=== PATIENT | male | born 1980 | race Caucasian/White ===

== ENCOUNTER 2018-12-26 17:10 | Inpatient (IN) | payer OTHER ==
[~2018-12-26] VITALS: Ht 152.4 cm; Wt 96.8 kg
[2018-12-26] VITALS (7 sets, daily range): BP systolic 109–161; BP diastolic 62–106
[2018-12-26] MEDS ORDERED: NOHOMEMEDICATIONS (17:27)
[2018-12-26 17:46] LABS: HEMATOCRIT 50.4 % (42.0-52.0); HEMOGLOBIN 16.7 gm/dL (14.0-18.0); MCH 33.1 pg (26.0-34.0); MCHC 33.2 g/dL (28.0-37.0); MCV 99.8 fL (80.0-100.0); MPV 9.1 fl. (7.2-11.1); NUCLEATED RBCS 0 /100WBC; PLATELET COUNT* 254 thou/uL (150-400); RBC 5.05 mil/uL (4.50-6.00); RDW-CV 14.4 % (10.5-14.5); WBC 18.2 thou/uL (4.0-11.0)
[2018-12-26 17:55] LABS: CALCIUM 9.9 mg/dL (8.5-10.1); CREATININE 1.5 mg/dL (0.6-1.3); POTASSIUM 3.8 mmol/L (3.5-5.1)
[2018-12-26 18:00] LABS: URINE BILIRUBIN NEGATIVE (Negative); URINE BLOOD 2+ (Negative); URINE CLARITY CLEAR; URINE COLOR YELLOW; URINE GLUCOSE-RANDOM NEGATIVE (Negative); URINE KETONES TRACE (Negative); URINE LEUKOCYTES-REFLEX NEGATIVE (Negative); URINE NITRITE-REFLEX NEGATIVE (Negative); URINE PROTEIN 2+ (Negative); URINE SPECIFIC GRAVITY >= 1.030 (1.005-1.030); URINE UROBILINOGEN 0.2 E.U./dl (0.2-1.0)
[2018-12-26 18:00] LABS: ALBUMIN 4.6 g/dL (3.4-5.0); MAGNESIUM 2.2 mg/dL (1.8-2.4); TOTAL BILIRUBIN 0.2 mg/dL (<0.1-1.0); TOTAL PROTEIN 8.4 g/dL (6.4-8.2)
[2018-12-26 18:10] LABS: AMORPHOUS URATES Few /LPF (None Seen); BACTERIA-REFLEX 1-9 Few /HPF (None Seen); CASTS None Seen /LPF (None Seen); CRYSTALS None Seen /LPF (None Seen); MUCUS 0-3 Light strn/LPF (None Seen); SQUAMOUS 0-3 Few /LPF (0-3); URINE RBC 0-2 Rare /HPF (0-2); URINE WBC-REFLEX 0-5 Rare /HPF (0-5)
[2018-12-26 18:12] LABS: INR 0.9; PROTIME 9.5 Seconds (9.20-11.50)
[2018-12-26 18:13] LABS: ABSOLUTE LYMPHOCYTES 12.6 thou/uL (0.8-5.3); ABSOLUTE MONOCYTES 0.9 thou/uL (0.0-1.2); ABSOLUTE NEUTROPHILS 4.7 thou/uL (1.6-8.1); PLATELET ESTIMATE ADEQUATE
[2018-12-26 18:26] LABS: AMP/METHAMP Negative (Negative); BARBITURATES Negative (Negative); BENZODIAZEPINES POSITIVE (Negative); COCAINE Negative (Negative); METHADONE Negative (Negative); OPIATES Negative (Negative); PCP Negative (Negative); THC Negative (Negative)
[2018-12-26 18:57] LABS: CK-MB MASS 1.5 ng/mL (<0.5-3.6); LIPASE 206 U/L (73-393); TROPONIN-I LEVEL <0.06 ng/mL (<0.06)
[2018-12-26 19:17] LABS: BE -5.7 mmol/L (-2 to +3); PCO2 40.7 mmHg (35.0-45.0); pH 7.313 (7.340-7.450)
[2018-12-26 19:19] LABS: PO2 307.1 mmHg (75.0-100.0)
[2018-12-26 19:57] LABS: CSF CLARITY CLEAR; CSF COLOR COLORLESS; CSF RBC 0 /mm3; CSF WBC 0 /mm3 (0-10); VOLUME 0.5 ml
[2018-12-27] VITALS (18 sets, daily range): BP systolic 106–139; BP diastolic 57–78
[2018-12-27 03:57] LABS: ABSOLUTE EOSINOPHILS 0.1 thou/uL (0.0-0.7); ABSOLUTE LYMPHOCYTES 3.4 thou/uL (0.8-5.3); ABSOLUTE NEUTROPHILS 9.8 thou/uL (1.6-8.1); BASOPHILS 0.3 %; EOSINOPHILS 0.8 %; HEMATOCRIT 41.4 % (42.0-52.0); LYMPHOCYTES 22.2 %; MCH 32.1 pg (26.0-34.0); MCHC 33.3 g/dL (28.0-37.0); MCV 96.4 fL (80.0-100.0); MONOCYTES 12.7 %; MPV 8.5 fl. (7.2-11.1); NUCLEATED RBCS 0 /100WBC; PLATELET COUNT* 202 thou/uL (150-400); RDW-CV 13.6 % (10.5-14.5); WBC 15.4 thou/uL (4.0-11.0)
[2018-12-27 04:01] LABS: HEMOGLOBIN 13.8 gm/dL (14.0-18.0)
[2018-12-27 06:21] LABS: BE -1.5 mmol/L (-2 to +3); PCO2 43.8 mmHg (35.0-45.0); pH 7.359 (7.340-7.450)
[2018-12-28] VITALS (24 sets, daily range): BP systolic 98–190; BP diastolic 53–116
[2018-12-28 04:58] LABS: ABSOLUTE LYMPHOCYTES 1.7 thou/uL (0.8-5.3); ABSOLUTE MONOCYTES 0.3 thou/uL (0.0-1.2); ABSOLUTE NEUTROPHILS 6.9 thou/uL (1.6-8.1); BASOPHILS 0.1 %; EOSINOPHILS 0.1 %; HEMATOCRIT 42.8 % (42.0-52.0); HEMOGLOBIN 14.2 gm/dL (14.0-18.0); LYMPHOCYTES 19.2 %; MCH 32.2 pg (26.0-34.0); MCHC 33.1 g/dL (28.0-37.0); MCV 97.4 fL (80.0-100.0); MONOCYTES 3.5 %; MPV 8.7 fl. (7.2-11.1); NUCLEATED RBCS 0 /100WBC; PLATELET COUNT* 222 thou/uL (150-400); POLYS 77.1 %; RBC 4.39 mil/uL (4.50-6.00); RDW-CV 14.1 % (10.5-14.5); WBC 8.9 thou/uL (4.0-11.0)
[2018-12-28 05:24] LABS: CALCIUM 8.8 mg/dL (8.5-10.1); CREATININE 0.7 mg/dL (0.6-1.3); POTASSIUM 4.6 mmol/L (3.5-5.1)
[2018-12-28 05:52] LABS: BE -0.5 mmol/L (-2 to +3); PCO2 40.4 mmHg (35.0-45.0); PO2 66.4 mmHg (75.0-100.0); pH 7.396 (7.340-7.450)
--- NOTE | 2018-12-28 08:38 | EKG ---
[place] [address] ELECTROCARDIOGRAM REPORT Name: DARREN BERNAL II Room: [address] ADM IN M.R.#: [id number] Admission: 12/26/18 Attend Phys: Asael Arias MD Discharge: Date of : 80 Report #: [id number] THIS REPORT FOR: //name// [facility] ED Test Date: 2018-12-26 Test Time: 18:30:35 Pat Name: DARREN BERNAL Department: Room: [address] Gender: M Maintenance Department Manager: [facility] : 1980 Requested By: Marie Brady Order Number: [id number] Raina MD: Lui Lane Measurements Intervals Doole Rate: 112 P: 67 MT: 173 QRS: 35 QRSD: 95 T: 24 QT: 336 QTc: 459 Interpretive Statements Sinus tachycardia Left atrial enlargement, possible No previous ECG available for comparison Electronically Signed On 12-28-2018 8:38:[address] [email or web address] <ELECTRONICALLY SIGNED> By: Lui Lane MD, [facility] 12/28/[address] MD, FACC /EPI
[2018-12-28 11:25] LABS: BE -2.1 mmol/L (-2 to +3); PCO2 41.1 mmHg (35.0-45.0); PO2 100.6 mmHg (75.0-100.0); pH 7.368 (7.340-7.450)
--- NOTE | 2018-12-28 15:00 | 2DMMODE ---
[place] [address] 2 D/M-MODE ECHOCARDIOGRAM Name: DARREN BERNAL II Room: [address] IN [facility]#: [id number] Admission: 12/26/18 Attend Phys: Asael Arias, Discharge: Date of : 80 Date of Service: 12/28/18 1459 Report #: [id number] THIS REPORT FOR: //name// APPROVED REPORT Study performed: 12/28/2018 10:19:58 EXAM: Comprehensive 2D, Doppler, and color-flow Echocardiogram Patient Location: In-Patient Room #: [facility][note 3] Status: routine BSA: 2.10 HR: 98 bpm BP: 124/77 mmHg Rhythm: NSR Other Information Study Quality: Good 2D Dimensions IVSd: 12.47 (7-11mm) LVOT Diam: 21.82 (18-24mm) LVDd: 43.05 mm PWd: 11.10 (7-11mm) LVDs: 33.27 (25-40mm) Aortic Root: 37.46 mm Volumes Left Atrial Volume (Systole) LA ESV Index: 32.70 mL/m2 Aortic Valve AoV Peak Hector.: 1.23 m/s AO Peak Gr.: 6.04 mmHg LVOT Max P.00 mmHg AO Mean Gr.: 3.40 mmHg LVOT Mean P.01 mmHg LVOT Max V: 1.00 m/s AO V2 VTI: 20.53 cm LVOT Mean V: 0.65 m/s JESSICA (VTI): 3.31 cm2 LVOT V1 VTI: 18.15 cm Mitral Valve E/A Ratio: 0.95 MV Decel. Time: 202.89 ms MV E Max Hector.: 0.90 m/s MV PHT: 58.84 ms MVA (PHT): 3.74 cm2 [place] [address] 2 D/M-MODE ECHOCARDIOGRAM Name: DARREN BERNAL II Room: [address] IN [facility]#: [id number] Admission: 12/26/18 Attend Phys: Asael Arias, Discharge: Date of : 80 Date of Service: 12/28/18 1459 Report #: [id number] TDI E/Lateral E': 5.29 E/Medial E': 6.43 Medial E' Hector.: 0.14 m/s Lateral E' Hector.: 0.17 m/s Pulmonary Valve PV Peak Hector.: 1.23 m/s PV Peak Gr.: 6.01 mmHg Left Ventricle The left ventricle is normal size. There is normal LV segmental wall motion. There is normal left ventricular wall thickness. Left ventricular systolic function is normal. LVEF is 65-70%. Grade I - abnormal relaxation pattern. Right Ventricle The right ventricle is normal size. The right ventricular systolic function is normal. Atria Left atrium is mildly dilated. The right atrium size is normal. Aortic Valve The aortic valve is normal in structure. No aortic regurgitation is present. There is no aortic valvular stenosis. Mitral Valve The mitral valve is normal in structure. There is no mitral valve regurgitation noted. No evidence of mitral valve stenosis. Tricuspid Valve The tricuspid valve is normal in structure. There is no tricuspid valve regurgitation noted. Pulmonic Valve The pulmonary valve is normal in structure. There is no pulmonic valvular regurgitation. Great Vessels The aortic root is normal in size. IVC is normal in size and collapses >50% with inspiration. Pericardium There is no pericardial effusion. <Conclusion> [place] [address] 2 D/M-MODE ECHOCARDIOGRAM Name: DARREN BERNAL II Room: [address]#: [id number] Admission: 12/26/18 Attend Phys: Asael Arias, Discharge: Date of : 80 Date of Service: 12/28/18 1459 Report #: [id number] The left ventricle is normal size. There is normal left ventricular wall thickness. Left ventricular systolic function is normal. LVEF is 65-70%. Grade I - abnormal relaxation pattern. Left atrium is mildly dilated. IVC is normal in size and collapses >50% with inspiration. <ELECTRONICALLY SIGNED> By: Lui Lane MD, FACC 12/28/181458 [address] MD, FACC /INF
[2018-12-28 16:08] LABS: HIV-1/HIV-2 ANTIBODY Non Reactive (Non Reactive)
[2018-12-29] VITALS (11 sets, daily range): BP systolic 95–139; BP diastolic 63–89
[2018-12-29 04:22] LABS: ABSOLUTE LYMPHOCYTES 1.5 thou/uL (0.8-5.3); ABSOLUTE MONOCYTES 0.9 thou/uL (0.0-1.2); ABSOLUTE NEUTROPHILS 8.9 thou/uL (1.6-8.1); BASOPHILS 0.4 %; HEMATOCRIT 37.6 % (42.0-52.0); HEMOGLOBIN 12.6 gm/dL (14.0-18.0); LYMPHOCYTES 13.4 %; MCH 32.2 pg (26.0-34.0); MCHC 33.5 g/dL (28.0-37.0); MONOCYTES 8.3 %; MPV 8.3 fl. (7.2-11.1); NUCLEATED RBCS 0 /100WBC; PLATELET COUNT* 222 thou/uL (150-400); POLYS 77.9 %; RBC 3.91 mil/uL (4.50-6.00); RDW-CV 13.8 % (10.5-14.5); WBC 11.4 thou/uL (4.0-11.0)
[2018-12-29 04:33] LABS: APTT 27.3 Seconds (25.0-31.3); PROTIME 10.4 Seconds (9.20-11.50)
[2018-12-29 11:11] LABS: CALCIUM 8.6 mg/dL (8.5-10.1); CREATININE 0.8 mg/dL (0.6-1.3); POTASSIUM 4.3 mmol/L (3.5-5.1)
--- NOTE | 2018-12-29 12:47 | CON ---
[address] [address] CONSULTATION Name: DARREN BERNAL II Room: [address] IN .R.#: [id number] Admission: 12/26/18 Attend Phys: Asael Arias MD Discharge: Date of : 80 Report #: [id number] THIS REPORT FOR: //name// CC: Asael Arias [facility] physician/PCP DATE OF SERVICE: 12/27/2018 PULMONARY CONSULTATION REASON FOR CONSULTATION: Acute hypoxic respiratory failure, status epilepticus. PHYSICIAN REQUESTING CONSULTATION: Dr. Asael Airas. HISTORY OF PRESENT ILLNESS: The patient is a 38-year-old gentleman with past medical history that is significant for tobacco dependence. The patient presented to the Emergency Department after he was found to have left-sided jerky movements over the last 3 days by his . The patient was subsequently noted to have generalized tonic-clonic convulsion while on the way to the hospital. He was taken from the car when he was seizing with loss of consciousness and was given multiple doses of Versed and Ativan. He was given a total of 7 doses of 7 mg of Versed and 4 mg of Ativan for recurrent seizures. The patient was intubated for airway protection. The patient has been afebrile. According to the , the patient has been drinking heavily over the last few days, but he is not a chronic alcohol dependent. Overnight, he has been sedated with propofol. No witnessed seizures since intubation. However, no sedation holiday was started. During his admission, the patient was found to have acute kidney injury with lactic acidosis and ____. PAST MEDICAL HISTORY: Positive for tobacco dependence. PAST SURGICAL HISTORY: [place] [address] CONSULTATION Name: DARREN BERNAL II Room: [address]#: [id number] Admission: 12/26/18 Attend Phys: Asael Arias MD Discharge: Date of : 80 Report #: [id number] SOCIAL HISTORY: The patient has a history of smoking 2-3 packs per day for the last 15 years. The denies. He is occasional alcohol user. However, he has been drinking heavily over the last few days. No illicit drug use. FAMILY HISTORY: Negative for lung, cardiac, or seizure disorder. REVIEW OF SYSTEMS: Unobtainable since the patient is intubated and sedated. PHYSICAL EXAMINATION: The patient had the following: VITAL SIGNS: Temperature 37.2, heart rate of 86, respiratory rate of 17, blood pressure 116/69, saturation 99% on ventilator. GENERAL: Showed a young gentleman, who is intubated and sedated. HEAD: Atraumatic. EYES: Pupils reactive bilaterally. NECK: Supple. No cervical lymphadenopathy. No carotid bruit. CARDIOVASCULAR: Regular rate and rhythm, normal S1, S2, no murmur. CHEST: Decreased air entry with prolonged expiratory phase and wheezing. ABDOMEN: Soft, lax, nontender. Normal bowel sounds. EXTREMITIES: Lower limb examination showed no clubbing, cyanosis, or edema. HEMATOLOGY SPECIALIST: Limited by the fact that the patient is sedated. Pupils are reactive. Further examination will be deferred until sedation is reduced. LABORATORY DATA: As follows: CBC showed a WBC count of 15.4, hemoglobin of 13.8 and platelets of 202. His blood gas was 7.359, pCO2 of 43, pO2 of 116 on 50% FiO2 with AC controlled ventilation. Toxicology screen is negative except benzodiazepine, which might have been given during the ER visit. Creatinine is 1, but on admission, it was 1.5. Lactic acid was 3.5 on admission, but it is currently 0.7. His CT scan of the head was unremarkable. His chest x-ray showed retrocardiac left basilar infiltrate/possible atelectasis. Endotracheal tube is in place. No clear consolidation otherwise. ASSESSMENT AND PLAN: 1. Acute hypoxic respiratory failure. 2. Status epilepticus. 3. Bronchospasm. 4. Acute kidney injury. 5. Metabolic acidosis. 6. Lactic acidosis. PLAN: The patient presented with recurrent seizures what appeared to [place] [address] CONSULTATION Name: DARREN BERNAL II Room: [address] IN [facility].#: [id number] Admission: 12/26/18 Attend Phys: Asael Arias MD Discharge: Date of : 80 Report #: [id number] He is currently sedated. No apparent seizures clinically. I discussed with the neurologist overnight, Dr. Malhotra and we decided to keep him lightly sedated on propofol. Lumbar puncture was attempted. He will likely go for an EEG evaluation and MRI. If no evidence of recurrent seizures, we will proceed with spontaneous breathing trial. He appears to have chronic history of heavy tobacco dependence. He is wheezy and has bronchospasm. I will start him on scheduled bronchodilators and IV Solu-Medrol. He is on empiric antibiotic coverage. Infectious Disease is following. Acute kidney injury, improved after hydration along with lactic acidosis. Prophylaxis: Lovenox and PPI. Thank you for giving us the opportunity to participate in the management of this patient. CRITICAL CARE TIME: 38 minutes. <ELECTRONICALLY SIGNED> By: Antonia Luna MD 12/29/18 1247 0946 1042Ammar Noelle Luna MD /nt
[2018-12-29 16:09] LABS: CSF GLUCOSE 72 mg/dl (40-70); CSF PROTEIN 52.2 mg/dl (15-45)
[2018-12-29 16:54] LABS: CSF CLARITY CLEAR; CSF COLOR COLORLESS; VOLUME 5 ml
[2018-12-29 16:55] LABS: CSF RBC 493 /mm3
[2018-12-29 16:56] LABS: CSF WBC 14 /mm3 (0-10)
[2018-12-29 17:23] LABS: CSF LYMPHOCYTES 21 % (40-80); CSF MONONUCLEARS 6 % (15-45); CSF POLYS 73 % (0-6)
[2018-12-29 19:10] LABS: IgA 136 mg/dL (90-386); IgG 594 mg/dL (700-1600); IgM 49 mg/dL (20-172)
[2018-12-30] VITALS: BP 113/70
[2018-12-30 08:00] VITALS: BP 118/77
[2018-12-30 12:01] VITALS: BP 152/86
[2018-12-30 16:37] VITALS: BP 122/74
[2018-12-30 20:15] VITALS: BP 122/72
[2018-12-31] VITALS: BP 126/77
[2018-12-31 04:00] VITALS: BP 118/74
[2018-12-31 09:45] LABS: ABSOLUTE LYMPHOCYTES 1.1 thou/uL (0.8-5.3); ABSOLUTE MONOCYTES 0.3 thou/uL (0.0-1.2); ABSOLUTE NEUTROPHILS 7.6 thou/uL (1.6-8.1); BASOPHILS 0.2 %; HEMATOCRIT 43.9 % (42.0-52.0); LYMPHOCYTES 12.4 %; MCH 32.2 pg (26.0-34.0); MCHC 33.7 g/dL (28.0-37.0); MCV 95.4 fL (80.0-100.0); MONOCYTES 3.4 %; MPV 8.1 fl. (7.2-11.1); NUCLEATED RBCS 0 /100WBC; PLATELET COUNT* 259 thou/uL (150-400); RDW-CV 13.3 % (10.5-14.5)
[2018-12-31 09:50] LABS: HEMOGLOBIN 14.8 gm/dL (14.0-18.0)
[2018-12-31 09:59] LABS: ALBUMIN 3.6 g/dL (3.4-5.0); CALCIUM 9.6 mg/dL (8.5-10.1); CREATININE 0.7 mg/dL (0.6-1.3); POTASSIUM 4.2 mmol/L (3.5-5.1); TOTAL BILIRUBIN 0.5 mg/dL (<0.1-1.0); TOTAL PROTEIN 7.1 g/dL (6.4-8.2)
[2018-12-31 13:11] LABS: CSF ALBUMIN 27 mg/dL (11-48); CSF IGG INDEX 0.7 (0.0-0.7); CSF IgG 3.2 mg/dL (0.0-8.6); CSF/SERUM ALBUMIN INDEX 7 (0-8)
--- NOTE | 2019-01-01 05:19 | CON ---
[address] [address] CONSULTATION Name: DARREN BERNAL II Room: [address] IN [facility]#: [id number] Admission: 12/26/18 Attend Phys: Asael Arias MD Discharge: 12/31/18 Date of : 80 Report #: [id number] THIS REPORT FOR: //name// CC: Asael Arias FAM physician/PCP DATE OF SERVICE: 12/27/2018 INFECTIOUS DISEASE CONSULTATION ATTENDING PHYSICIAN: Asael Arias M.D. REASON FOR CONSULTATION: Seizures, rule out infection. HISTORY OF PRESENT ILLNESS: A 38-year-old white man is driven today by his to the Emergency Room with history of tremors, shakiness of the left upper extremity, subsequently developing to full-blown seizure activity. The patient is admitted to the Intensive Care Unit. He is intubated through oral cavity. He is completely sedated and all information is gathered from review of records and conversation with the patient's and patient's mother. PAST MEDICAL HISTORY: Cigarette smoking 2-3 packets a day and occasional alcohol, under some stress of late. He had a left chest biopsy on account of mother having Hodgkin's. 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 SOCIAL HISTORY: . He has 2 children and no one having infection at home. REVIEW OF SYSTEMS: Essentially not contributory. PHYSICAL EXAMINATION: GENERAL: This is a well-developed, sedated white man in the Intensive Care Unit, intubated through oral cavity presenting with following vital signs. VITAL SIGNS: Temperature maximum is 37.7, pulse 88, respirations 17, BP 115/60. On admission, pulse is 160, respirations 26, BP 154/79. HEENT: Head normocephalic, atraumatic. Pupils are rather small, difficult to say whether they are reactive to light. He has positive doll's eye. Other than that, I can nothing about his neurologic status in view of sedation. NECK: Supple. LUNGS: Few wheezes anteriorly, clear posteriorly. HEART: S1, S2. No gallop or murmur. ABDOMEN: Soft. No masses or megaly. GENITALIA: Monahan catheter in place. RECTAL: Deferred. EXTREMITIES: No clubbing, cyanosis. On the left subclavian area, [place] [address] CONSULTATION Name: DARREN BERNAL II Room: [address]#: [id number] Admission: 12/26/18 Attend Phys: Asael Arias MD Discharge: 12/31/18 Date of : 80 Report #: [id number] area of erythema from failed subclavian attempts on several occasions. NEUROLOGICAL: Unable to evaluate. LABORATORY DATA: Spinal fluid normal. Sodium 148 and potassium 3.8. CO2 of 12 on admission and 23 today, BUN 19 on admission and 19 today. Creatinine 1.5 yesterday and 1.0 today. Glucose 104. Calcium on admission 9.98 g/dL today. Total protein 8.4 g/dL. Albumin 4.6 g/dL. Lactic acid obviously elevated postictal, normalizes a few hours later. CPK normal. Troponin normal. TSH normal. Protime normal. D-dimer is normal. Alcohol negative and benzodiazepines positive. White blood cell count elevated at 18,200 on admission and 15,400 today. Hemoglobin 16.7 on admission and 13.8 g/dL today. Platelets normal. White blood cell count revealed 26% neutrophils on admission and 69% lymphocytes. Today, differential reveals 64% neutrophils and 22% lymphocytes. Urinalysis revealed 2+ protein, trace ketones, 2+ blood, some bacteriuria, and some mucus. This urinalysis indicates the patient may not been eating for several hours to days. Arterial blood gases on admission revealed pH 7.31, pCO2 of 40, pO2 of 307, and bicarbonate low at 20.2. This set of gases on FiO2 of 100%. Repeat ABGs today revealed a pO2 that is elevated since the patient is on FiO2 of 50%. Other than that, ABGs normal. MICROBIOLOGY DATA: Blood cultures were obtained, they remain negative so far. RADIOLOGY EVALUATION: CT scan of the chest without contrast negative. Chest x-ray revealed endotracheal tube in place, no acute abnormalities. MRI of the brain is pending. ASSESSMENT: 1. Seizure disorder with associated lactic acidosis and leukocytosis, improved, resolved. 2. Cigarette smoking. 3. Alcohol use. 4. Question of left basilar retrocardiac infiltrate. SUGGESTIONS: Recommend proceed with MRI. HIV serology for any patient between the ages of 18 and 65. Proceed with MRI and try to extubate as soon as possible. If no clear-cut indication for antibiotic, to be seen in 24 hours. At present, no clear-cut signs of infection. Dr. Arias, thank you for requesting our suggestions. <ELECTRONICALLY SIGNED> By: Hari Arreola MD 01/01/19 0519 0910 [id number] Arreola MD /nt
[2019-01-01 14:08] LABS: HSV 1 DNA Negative (Negative); HSV 2 DNA Negative (Negative)
[2019-01-01 18:06] LABS: CMV IgM Abs <30.0 AU/mL (0.0-29.9)
[2019-01-03 16:08] LABS: GLOBULIN TOTAL 3.4 g/dL (2.2-3.9); M-SPIKE 0.3 g/dL (Not Observed)
[2019-01-05 14:09] LABS: ANA INTERPRETATION Negative (Negative)
--- NOTE | 2019-01-07 14:24 | EEG ---
[address] [address] EEG STUDY REPORT Name: DARREN BERNAL II Room: [address]#: [id number] Admission: 12/26/18 Attend Phys: Asael Arias MD Discharge: 12/31/18 Date of : 80 Report #: [id number] THIS REPORT FOR: //name// CC: Asael Arias FAM physician/PCP DATE OF SERVICE: 12/27/2018 This patient is admitted with seizure-like activity on the left side. EEG was done by placing the electrode by standard 10/20 system of electrode placement. Both referential and sequential montages were used for recording. Background activity in this patient's EEG is about 9 Hz and 30 microvolt. It is intermixed with theta range slowing on both sides. Photic stimulation is unremarkable. Throughout the record, no active epileptiform activity was noticed. IMPRESSION: In spite of being on propofol, this patient's EEG is relatively well formed and has significant amount of alpha activity. It does not appear to be alpha coma. There is no active epileptiform activity in this patient and there is no marked asymmetry. Thank you very much for this referral. <ELECTRONICALLY SIGNED> By: Fabian Miller MD 01/07/19 1424 1759 1850Fabian Miller MD /nt
== END 2018-12-31 12:42 | DRG 208 ==
LOC: M.ERS 17:10 → M.ICU 18:09 → M.TBA-ER 18:09 → M.ICU 19:12 → M.2W 12-30 20:14
PROVIDERS: Internal Medicine; Internal Medicine Critical Care Medicine; Internal Medicine Infectious Disease; Personal Emergency Response Attendant; Psychiatry & Neurology Neuromuscular Medicine; Specialist; ADMIT Internal Medicine
PROC: 5A1945Z Respiratory Ventilation, 24-96 Consecutive Hours (ICD-10-PCS; principal; 2018-12-27)
PROC: 0BH17EZ Insertion of Endotracheal Airway into Trachea, Via Natural or Artificial Opening (ICD-10-PCS; principal; 2018-12-27)
PROC: 009U3ZX Drainage of Spinal Canal, Percutaneous Approach, Diagnostic (ICD-10-PCS; 2018-12-30)
PROC: B01B1ZZ Fluoroscopy of Spinal Cord using Low Osmolar Contrast (ICD-10-PCS; 2018-12-30)
DX: J96.01 Acute respiratory failure with hypoxia (principal); N17.9 Acute kidney failure, unspecified; E87.2 Acidosis; E87.0 Hyperosmolality and hypernatremia; B02.0 Zoster encephalitis; H46.9 Unspecified optic neuritis; G40.901 Epilepsy, unspecified, not intractable, with status epilepticus; D72.829 Elevated white blood cell count, unspecified; F17.210 Nicotine dependence, cigarettes, uncomplicated; F10.20 Alcohol dependence, uncomplicated; G35 Multiple sclerosis; Z79.899 Other long term (current) drug therapy; Z28.21 Immunization not carried out because of patient refusal